=== PATIENT | female | born 1985 | race Caucasian/White ===

== ENCOUNTER 2022-07-31 13:49 | Observation (INO) ==
[2022-07-31] MEDS ORDERED: Iopamidol - 370 500 ML MLS IVP ONE (14:16)
[2022-07-31] MEDS ORDERED: Ketorolac 30 MG/ML VIAL IVP ONE (14:16)
[2022-07-31] MEDS ORDERED: 0.9 % Sodium Chloride 1,000 ML IVC ONE ×2 (14:18→19:21)
[2022-07-31 14:38] LABS: Basophils # 0.1 K/mcL (0.0-0.2); Basophils % 0.6 %; Eosinophils % 0.2 %; Hemoglobin 13.1 g/dL (11.5-15.4); Immature Granulocytes % 0.2 % (0-4); Lymphocytes # 0.5 K/mcL (0.6-4.6); Lymphocytes % 3.8 %; Mean Corpuscular HGB Conc 33.6 g/dL (31.6-35.5); Mean Corpuscular Hemoglobin 28.1 pg (28.0-33.3); Mean Corpuscular Volume 83.5 fL (83.0-100.0); Mean Platelet Volume 10.5 fL (9.4-12.4); Monocytes # 0.6 K/mcL (0.0-1.3); Monocytes % 4.7 %; Neutrophils # 10.9 K/mcL (1.6-8.9); Platelet Count 283 K/mcL (140-400); Red Blood Count 4.67 M/mcL (3.82-4.97); Red Cell Distribution Width 12.3 % (11.5-14.5); Segmented Neutrophils % 90.5 %
[2022-07-31 14:57] LABS: Potassium 4.3 mEq/L (3.5-5.1)
[2022-07-31 15:06] LABS: Amphetamine Screen,Urine Positive ng/mL (Cutoff=1000); Barbiturate Screen,Urine Negative ng/mL (Cutoff=200); Benzodiazepines Screen,Urine Negative ng/mL (Cutoff=200); Cannabinoid Screen,Urine Positive ng/mL (Cutoff = 50); Cocaine Screen,Urine Negative ng/mL (Cutoff= 300); Opiate Screen,Urine Negative ng/mL (Cutoff=300); Phencyclidine Screen,Urine Negative ng/mL (Cutoff=25)
[2022-07-31 15:07] LABS: Platelet Estimate Normal (Normal)
[2022-07-31] MEDS ORDERED: Ondansetron 4 MG/2 ML VIAL IVP PRN (16:47)
[2022-07-31] MEDS ORDERED: Naloxone 0.4 MG/ML INJ IVP PRN (16:47)
[2022-07-31 18:07] LABS: Chlamydia Trachomatis DNA Ur NOT DETECTED (Not Detect)
[2022-07-31] MEDS: 0.9 % Sodium Chloride 1,000 ML IVC SCH (18:35)
[2022-07-31] MEDS: *HR* HYDROcodone/Acet 5/325 mg TABLET PO PRN (18:35)
[2022-07-31] MEDS: *HR* Heparin 5,000 UNIT/ML VIAL SQ SCH (18:35)
[2022-07-31] MEDS: Albuterol 2.5 MG/3 ML NEBULIZER IH PRN (20:44)
[2022-07-31] MEDS: Melatonin 3 MG TABLET PO PRN (21:13)
[2022-07-31] MEDS: Acetaminophen 325 MG TABLET PO PRN (21:13)
[2022-08-01] MEDS: Piperacillin/Tazobactam 3.375 GM in 0.9 % Sodium Chloride Mini Bag 100 ML IVPB SCH ×3 (00:45→15:41)
[2022-08-01] MEDS: 0.9 % Sodium Chloride 1,000 ML IVC SCH ×4 (04:25→22:02)
[2022-08-01] MEDS: Acetaminophen 325 MG TABLET PO PRN ×2 (06:55→15:37)
[2022-08-01] MEDS: *HR* Heparin 5,000 UNIT/ML VIAL SQ SCH ×2 (06:55→19:38)
[2022-08-01] MEDS: Albuterol 2.5 MG/3 ML NEBULIZER IH PRN (07:12)
[2022-08-01 08:47] LABS: Hematocrit 31.6 % (35.3-44.9); Hemoglobin 10.4 g/dL (11.5-15.4); Mean Corpuscular HGB Conc 32.9 g/dL (31.6-35.5); Mean Corpuscular Hemoglobin 27.4 pg (28.0-33.3); Mean Corpuscular Volume 83.2 fL (83.0-100.0); Mean Platelet Volume 10.2 fL (9.4-12.4); Monocytes # 0.9 K/mcL (0.0-1.3); Platelet Count 231 K/mcL (140-400); Red Cell Distribution Width 12.7 % (11.5-14.5); White Blood Count 11.1 K/mcL (4.3-11.1)
[2022-08-01 08:59] LABS: Calcium 8.1 mg/dL (8.6-10.3); Potassium 4.5 mEq/L (3.5-5.1)
[2022-08-01] MEDS ORDERED: HydrOXYzine SYP 10 MG/5 ML UDC PO PRN (11:21)
[2022-08-01 12:39] LABS: Lymphocytes # 0.2 K/mcL (0.6-4.6); Neutrophils # 9.8 K/mcL (1.6-8.9)
[2022-08-01 12:41] LABS: Platelet Estimate Normal (Normal)
[2022-08-01] MEDS: *HR* HYDROcodone/Acet 5/325 mg TABLET PO PRN ×2 (13:28→20:27)
[2022-08-01] MEDS ORDERED: Levalbuterol Neb 0.63 MG/3 ML ONE (17:40)
[2022-08-01] MEDS ORDERED: Levalbuterol 1 PUFF INHALER IH SCH (17:45)
[2022-08-01] MEDS ORDERED: Levalbuterol Neb 0.63 MG/3 ML IH PRN (17:47)
[2022-08-01] MEDS: Melatonin 3 MG TABLET PO PRN (20:27)
[2022-08-02] MEDS: Piperacillin/Tazobactam 3.375 GM in 0.9 % Sodium Chloride Mini Bag 100 ML IVPB SCH ×3 (00:16→15:26)
[2022-08-02] MEDS ORDERED: hydrOXYzine pamoate 25 MG CAPSULE PO PRN (01:39)
[2022-08-02] MEDS: *HR* HYDROcodone/Acet 5/325 mg TABLET PO PRN ×2 (04:58→14:27)
[2022-08-02] MEDS: *HR* Heparin 5,000 UNIT/ML VIAL SQ SCH ×2 (04:58→16:35)
[2022-08-02 07:46] LABS: Hematocrit 29.7 % (35.3-44.9); Hemoglobin 9.8 g/dL (11.5-15.4); Mean Corpuscular Hemoglobin 27.3 pg (28.0-33.3); Mean Corpuscular Volume 82.7 fL (83.0-100.0); Mean Platelet Volume 9.8 fL (9.4-12.4); Platelet Count 275 K/mcL (140-400); Red Blood Count 3.59 M/mcL (3.82-4.97); Red Cell Distribution Width 12.8 % (11.5-14.5); White Blood Count 13.2 K/mcL (4.3-11.1)
[2022-08-02] MEDS: 0.9 % Sodium Chloride 1,000 ML IVC SCH ×2 (08:29→15:27)
[2022-08-02] MEDS: Acetaminophen 325 MG TABLET PO PRN ×2 (08:30→15:25)
[2022-08-02 09:41] LABS: Lymphocytes # 0.3 K/mcL (0.6-4.6); Monocytes # 1.1 K/mcL (0.0-1.3); Neutrophils # 11.9 K/mcL (1.6-8.9)
[2022-08-02 09:42] LABS: Dohle Bodies Present (Not Present); Platelet Estimate Normal (Normal)
[2022-08-02] MEDS ORDERED: Fluconazole 100 MG TABLET PO ONE (15:28)
[2022-08-02] MEDS ORDERED: *HR* Metoprolol 5 MG/5 ML VIAL IVP PRN (15:37)
[2022-08-02 16:37] VITALS: O2SAT 95
[2022-08-02 19:04] VITALS: BP 133/93; PULSE 98; RESP 15; TEMP 99.4
[2022-08-02 22:48] LABS: Adenovirus Not Detected (Not Detect); Bordetella Pertussis Not Detected (Not Detect); Chlamydophila pneumoniae Not Detected (Not Detect); Coronavirus 229E Not Detected (Not Detect); Coronavirus HKU1 Not Detected (Not Detect); Coronavirus NL63 Not Detected (Not Detect); Coronavirus OC43 Not Detected (Not Detect); Human Metapneumovirus Not Detected (Not Detect); Human Rhinovirus/Enterovirus Not Detected (Not Detect); Influenza A Subtype 2009 H1 Not Detected (Not Detect); Influenza B Not Detected (Not Detect); Mycoplasma pneumoniae Not Detected (Not Detect); Parainfluenza Virus 1 Not Detected (Not Detect); Parainfluenza Virus 2 Not Detected (Not Detect); Parainfluenza Virus 3 Not Detected (Not Detect); Parainfluenza Virus 4 Not Detected (Not Detect); Respiratory Syncytial Virus Not Detected (Not Detect); SARS-CoV-2 Not Detected (Not Detect)
[2022-08-03] MEDS ORDERED: Fluconazole 100 MG TABLET PO SCH (09:00)
== END 2022-08-02 20:13 | disposition other institution (70) ==
LOC: EMEROOPIK 13:49 → INPPIK 13:49 → MERGE 16:38 → INPPIK 17:32
PROVIDERS: ADMIT Internal Medicine; ATTEND Internal Medicine